=== PATIENT | female | born 1970 | race Caucasian/White ===

== ENCOUNTER 2020-07-23 08:13 | Emergency (ER) | payer OTHER ==
[~2020-07-23] VITALS: Ht 165.1 cm; Wt 113.6 kg
[2020-07-23 08:16] VITALS: BP 129/87
[2020-07-23] MEDS ORDERED: LISI-893 PO (08:20)
== END 2020-07-23 09:46 | disposition home or self-care (01) ==
LOC: EMS 08:19
DX: G47.00 Insomnia, unspecified (principal); I10 Essential (primary) hypertension
CPT/HCPCS: 99281; Z7502